=== PATIENT | male | born 1990 | race Caucasian/White ===

== ENCOUNTER 2021-11-17 08:10 | Emergency (ER) | payer SELFPAY ==
[2021-11-17 08:25] VITALS: BP 150/75; PULSE 83; RESP 15; TEMP 36.7; O2SAT 99; BMI 29.1
--- NOTE | 2021-11-17 08:37 | ED_ITS ---
HPI - General Adult General: Chief complaint: General Medical Stated complaint: Sore throat Time Seen by Provider: 11/17/21 08:20 History of Present Illness: HPI narrative: Patient presents with sore throat that started yesterday. Patient denies any fever chills shortness of breath headache cough or body aches. Patient does have nasal drainage. MD complaint: Sore throat Onset (ago): hour(s) Associated symptoms: Reports no associated symptoms; Deny chest pain, dyspnea, headache(s), nausea, rash or vomiting Review of Systems Const: Denies: fever(s), chills or body aches Eyes: Denies: change in vision or blurry vision ENMT: Reports: throat pain and nasal congestion Card: Denies: chest pain or dyspnea on exertion Resp: Denies: dyspnea, productive cough or non-productive cough GI: Denies: abdominal pain, nausea or vomiting : Denies: difficulty urinating Musc: Denies: extremity pain Skin/Breast: Denies: rash Neuro: Denies: headache(s) Psych: Denies: anxiety or depression Fortunato/Lymph: Denies: easy bruising Physical Exam Const: COMMON NORMALS: no acute distress (Child appears very well is playful in no distress) and patient oriented x3 GENERAL APPEARANCE: cooperative HENMT: COMMON NORMALS: normocephalic, external ears normal, EAC's normal, TM's normal bilaterally and Normal external nose present HEAD & SCALP: normal to inspection and normocephalic FACE & SINUS: normal facial exam NOSE: Normal external nose present and No nasal discharge present EXTERNAL EAR: Yes external ears normal EXTERNAL AUDITORY CANAL: EAC's normal TYMPANIC MEMBRANE: TM's normal bilaterally MOUTH: Normal oral and palatal mucosa pre sent THROAT: posterior oropharynx abnormal edema and erythema (Right side) Eye: COMMON NORMALS: conjunctivae normal GENERAL EYE: appearance normal, both eyes and all related structures CONJUNCTIVA: Yes conjunctivae normal Neck/C-Spine: COMMON NORMALS: no JVD Lymph: LYMPHATIC: no lymphadenopathy noted Chest: COMMONS NORMALS: normal inspection of the chest Resp: COMMON NORMALS: normal respiratory effort, No retractions, No use of accessory muscles and clear to auscultation bilaterally AUSCULTATION: clear to auscultation bilaterally Cardio: COMMON NORMALS: no JVD, regular rate and regular rhythm RATE: regular rate RHYTHM: regular rhythm GI: COMMON NORMALS: Normal to inspection, nondistended, normoactive bowel sounds present Extremity: COMMON NORMALS: normal to inspection Neuro: COMMON NORMALS: patient oriented x3 Skin: COMMON NORMALS: no rashes or lesions noted GENERAL SKIN EXAM: no rashes or lesions noted Course Vital Signs: Vital signs: Vital Signs Temperature 98.1 F 11/17/21 08:25 Pulse Rate 83 11/17/21 08:25 Respiratory Rate 15 11/17/21 08:25 Blood Pressure 150/75 11/17/21 08:25 Pulse Oximetry 99 11/17/21 08:25 Discharge Plan Discharge Patient Disposition: Home Clinical Impression: Acute sore throat Condition: Stable Prescriptions: New amoxicillin 500 mg capsule 500 mg PO TID 10 Days Qty: 30 RF: 0 Discharge Orders: Discharge ED (Routine); Ordered 11/17/21 Ordered By: Les Hall Discharge Diet: Usual diet Discharge Activity: Increase activity as tolerated Patient Instructions: Pharyngitis (ED) Activity Restrictions/Additional Instructions: Follow-up with medical provider as directed. Take medications as prescribed. Return to the ER or your medical provider if condition worsens. Please read and understand discharge instructions. If any questions ask please. You can establish that [facility]. Coding Level of Care Code ED Vendor Analyst for Sara Chavez
== END 2021-11-17 08:52 | disposition home or self-care (01) ==
PROVIDERS: Emergency Provider Nurse Practitioner Family
DX: J02.9 Acute pharyngitis, unspecified (principal)
CPT/HCPCS: 99282

== ENCOUNTER → 2024-07-19 11:26 | Outpatient (BNVA) | payer SELFPAY | DX: R11.2 Nausea with vomiting, unspecified (principal); R19.7 Diarrhea, unspecified; R05.9 Cough, unspecified | CPT/HCPCS: 87400; 87426 ==